=== PATIENT | female | born 1980 | race Two or more races ===

== ENCOUNTER 2017-07-25 01:45 | Inpatient (IN) | payer BC, MEDICAID ==
[~2017-07-25] VITALS: Ht 157.5 cm; Wt 91.2 kg
[2017-07-25] MEDS ORDERED: LACTATED RINGER'S 1,000 ML IV SCH ×2 (02:00→02:41)
[2017-07-25 02:36] LABS: Urine Bacteria NONE SEEN /hpf (None Seen); Urine Blood 1+ /uL (Negative); Urine Mucus FEW (None Seen); Urine Specific Gravity 1.026 (1.001-1.035); Urine WBC 1 /hpf (0 - 5)
[2017-07-25] MEDS ORDERED: LACT. RINGERS/OXYTOCIN 20UNITS 1,000 ML IV SCH (02:41)
[2017-07-25] MEDS ORDERED: BUTORPHANOL TARTRATE 2 MG/1 ML VIAL IM ONE ×2 (02:45)
[2017-07-25] MEDS ORDERED: LIDOCAINE 2% (LOCAL ANESTH.) PF 5ml SDV ID ONE (02:45)
[2017-07-25] MEDS ORDERED: BUTORPHANOL TARTRATE 2 MG/1 ML VIAL ONE (02:47)
[2017-07-25 03:00] LABS: Alcohol, Urine < 3.0 mg/dL (0-5); Amphetamine Screen, Urine NEGATIVE (NEGATIVE); Barbiturate Scree,Urine NEGATIVE (NEGATIVE); Benzodiazephine Screen, Urine NEGATIVE (NEGATIVE); Cannabinoid Screen, Urine NEGATIVE (NEGATIVE); Cocaine Screen, Urine NEGATIVE (NEGATIVE); Opiate Scree,Urine NEGATIVE (NEGATIVE); Phencyclidine Screen, Urine NEGATIVE (NEGATIVE)
[2017-07-25 03:17] LABS: Basophils # (auto) 0.1 uL; Basophils % (auto) 0.4 % (0.0-2.0); Eosinophils # (auto) 0 uL; Eosinophils % (auto) 0.2 % (0.0-7.0); Hematocrit 34.5 % (36.0-46.0); Hemoglobin 11.4 g/dL (12.2-16.2); Lymphocytes # (auto) 2.1 uL; Lymphocytes % (auto) 16.1 % (10.0-50.0); Mean Corpuscular Hemoglobin 28.6 pg (28.0-32.0); Mean Corpuscular Hgb Conc. 33.1 g/dL (32.0-36.0); Mean Corpuscular Volume 86.4 fL (80.0-100.0); Monocytes # (auto) 1.1 uL; Monocytes % (auto) 8.7 % (0.0-12.0); Neutrophils # (auto) 9.6 uL; Neutrophils % (auto) 74.6 % (37.0-80.0); Platelet Count (auto) 262 10^3/uL (140-450); Red Cell Distribution Width 14.8 % (11.8-14.3); White Blood Cell 12.8 10^3/uL (4.4-10.8)
[2017-07-25 03:40] LABS: INR 0.83 (0.9-1.15); Partial Thromboplastin Time 25.8 sec (23.78-33.04)
[2017-07-25 03:59] LABS: Albumin 2.7 g/dL (3.4-5.0); Calcium 8.1 mg/dL (8.5-10.1); Potassium 3.6 mmol/L (3.5-5.1)
[2017-07-25 04:02] LABS: BUN/Creatinine Ratio 13.7; Bilirubin, Total 0.3 mg/dL (0.2-1.0); Total Protein 6.8 g/dL (6.4-8.2)
[2017-07-25] MEDS ORDERED: LIDOCAINE HCL 2 %PF INJ 10ML AMP IJ ONE (04:17)
[2017-07-25] MEDS ORDERED: ePHEDrine SULFATE 50 MG/ML AMP ONE (04:17)
[2017-07-25] MEDS ORDERED: fentaNYL CITRATE 100 MCG/2 ML VL ONE (04:17)
[2017-07-25] MEDS ORDERED: fentaNYL W ROPIVACAINE 0 ML EPI ONE (04:17)
[2017-07-25] MEDS ORDERED: DERMOPLAST 60ML BOTTLE TOP PRN (05:30)
[2017-07-25] MEDS ORDERED: WITCH HAZEL-GLYCERIN PAD TOP PRN (05:30)
[2017-07-25] MEDS ORDERED: PHISODERM TOP SOLN 240ML BTL TOP PRN (05:30)
[2017-07-25] MEDS ORDERED: METHYLERGONOVINE MALEATE 0.2 MG/ML AMP IM PRN (05:30)
[2017-07-25] MEDS ORDERED: LACT. RINGERS/OXYTOCIN 20UNITS 500 ML IV ONE (06:50)
[2017-07-25] MEDS ORDERED: IBUPROFEN 600 MG TAB PO ONE (06:51)
[2017-07-25] MEDS ORDERED: ACETAMINOPHEN 325 MG TAB PO PRN (07:00)
[2017-07-25] MEDS ORDERED: IBUPROFEN 600 MG TAB PO PRN (07:00)
[2017-07-25] MEDS ORDERED: BUTORPHANOL TARTRATE 2 MG/1 ML VIAL IV ONE (07:15)
[2017-07-25 11:00] VITALS: BP 114/57
[2017-07-25 15:00] VITALS: BP 106/64
[2017-07-25 19:00] VITALS: BP 116/75
[2017-07-25 23:24] VITALS: BP 108/60
[2017-07-26 02:32] VITALS: BP 108/52
[2017-07-26 05:07] LABS: RPR Non Reactive (Non Reactive)
[2017-07-26] MEDS ORDERED: TETANUS-DIPTH-ACEL PERTUSSIS 0.5ML SYRG IM ONE (06:15)
[2017-07-26] MEDS ORDERED: MEASLES, MUMPS & RUBELLA VAC(MMRII) 0.5ML SC ONE (06:15)
[2017-07-26 07:00] VITALS: BP 115/57
[2017-07-26 09:08] LABS: Rubella Antibodies, IgG <0.90 index (Immune >0.99)
== END 2017-07-26 10:50 | disposition home or self-care (01) | DRG 775 ==
LOC: OBSVTOIN 01:45 → LDRP 01:45
PROVIDERS: ADMIT Obstetrics & Gynecology; ATTEND Obstetrics & Gynecology
PROC: 10E0XZZ Delivery of Products of Conception, External Approach (ICD-10-PCS; principal; 2017-07-25)
DX: O99.52 Diseases of the respiratory system complicating childbirth (principal); O99.344 Other mental disorders complicating childbirth; F31.9 Bipolar disorder, unspecified; J45.909 Unspecified asthma, uncomplicated; Z98.51 Tubal ligation status; Z37.0 Single live birth; Z3A.38 38 weeks gestation of pregnancy; Z23 Encounter for immunization
CPT/HCPCS: 36415; 59025; 59409; 80053; 80307; 81001; 85025; 85610; 85730; 86592; 86703; 86762; 86850; 86900; 86901; 87340; 90471; 90472; 90715; 96361; 96365; 96366; 96374; G0378; J2590; J3010

== ENCOUNTER 2017-12-18 07:49 | Emergency (ER) | payer BC, MEDICAID ==
[~2017-12-18] VITALS: Ht 172.7 cm; Wt 77.1 kg
[2017-12-18 08:48] LABS: Urine WBC None Seen /hpf (0 - 5)
[2017-12-18 08:55] LABS: Basophils # (auto) 0 uL; Basophils % (auto) 0.4 % (0.0-2.0); Eosinophils # (auto) 0 uL; Hematocrit 39.4 % (36.0-46.0); Hemoglobin 12.7 g/dL (12.2-16.2); Lymphocytes # (auto) 2.1 uL; Lymphocytes % (auto) 15.7 % (10.0-50.0); Mean Corpuscular Hemoglobin 28.3 pg (28.0-32.0); Mean Corpuscular Hgb Conc. 32.2 g/dL (32.0-36.0); Mean Corpuscular Volume 87.7 fL (80.0-100.0); Monocytes # (auto) 1.4 uL; Monocytes % (auto) 10.3 % (0.0-12.0); Neutrophils % (auto) 73.6 % (37.0-80.0); Nucleated Red Blood Cells % 0.1 %; Platelet Count (auto) 325 10^3/uL (140-450); Red Blood Cells 4.49 10^6/uL (4.0-5.20); Red Cell Distribution Width 13.8 % (11.8-14.3); White Blood Cell 13.5 10^3/uL (4.4-10.8)
[2017-12-18 09:00] LABS: Urine Bacteria FEW /hpf (None Seen); Urine Blood Negative /uL (Negative); Urine Specific Gravity 1.026 (1.001-1.035)
[2017-12-18 09:12] LABS: Albumin 3.8 g/dL (3.4-5.0); BUN/Creatinine Ratio 12.8; Calcium 8.7 mg/dL (8.5-10.1); Potassium 3.6 mmol/L (3.5-5.1)
[2017-12-18 09:15] LABS: Bilirubin, Total 0.8 mg/dL (0.2-1.0); Total Protein 8.1 g/dL (6.4-8.2)
[2017-12-18] MEDS ORDERED: SODIUM CHLORIDE 0.9% 500 ML IVB ONE (09:15)
[2017-12-18] MEDS ORDERED: MORPHINE SULFATE 4 MG/ML SYR/VIAL IV ONE (09:15)
[2017-12-18] MEDS ORDERED: SODIUM CHLORIDE 0.9% 1,000 ML IV ONE (09:15)
[2017-12-18] MEDS ORDERED: PROMETHAZINE HCL 25 MG/ML 1ML IV PRN (09:15)
[2017-12-18 09:37] LABS: Magnesium 2.1 mg/dL (1.6-2.6)
[2017-12-18 09:48] LABS: Beta HCG, Quantitative < 1 mlU/mL (1-3); Thyroid Stimulating Hormone 0.73 uIU/mL (0.358-3.74)
[2017-12-18 15:23] VITALS: BP 136/51
== END 2017-12-18 15:25 | disposition home or self-care (01) ==
LOC: ER 07:49 → EDUNIT# 07:49 → ER 15:25
DX: N83.202 Unspecified ovarian cyst, left side (principal); Z98.51 Tubal ligation status; Z87.891 Personal history of nicotine dependence
CPT/HCPCS: 36415; 71046; 74176; 76856; 80053; 81001; 83690; 83735; 84443; 84702; 85025; 93005; 96374; 96375; 99285; J2270; J2550; J7030

== ENCOUNTER 2018-10-22 13:16 | Emergency (ER) | payer BC, MEDICAID ==
[~2018-10-22] VITALS: Ht 170.2 cm; Wt 81.6 kg
[2018-10-22 13:58] LABS: Basophils # (auto) 0 uL; Basophils % (auto) 0.6 % (0.0-2.0); Eosinophils # (auto) 0.1 uL; Eosinophils % (auto) 0.7 % (0.0-7.0); Hematocrit 37.7 % (36.0-46.0); Hemoglobin 12.5 g/dL (12.2-16.2); Lymphocytes # (auto) 1.5 uL; Lymphocytes % (auto) 20.7 % (10.0-50.0); Mean Corpuscular Hemoglobin 28.9 pg (28.0-32.0); Mean Corpuscular Hgb Conc. 33.1 g/dL (32.0-36.0); Mean Corpuscular Volume 87.2 fL (80.0-100.0); Monocytes # (auto) 0.5 uL; Monocytes % (auto) 6.8 % (0.0-12.0); Neutrophils # (auto) 5.2 uL; Neutrophils % (auto) 71.2 % (37.0-80.0); Platelet Count (auto) 296 10^3/uL (140-450); Red Blood Cells 4.33 10^6/uL (4.0-5.20); Red Cell Distribution Width 14.6 % (11.8-14.3); White Blood Cell 7.3 10^3/uL (4.4-10.8)
[2018-10-22 14:23] LABS: Alanine Aminotransferase 17 U/L (13-56); Albumin 3.7 g/dL (3.4-5.0); Anion Gap 10 (5-15); Aspartate Aminotransferase 12 U/L (15-37); BUN/Creatinine Ratio 16.7; Blood Urea Nitrogen 16 mg/dL (7-18); Calcium 8.3 mg/dL (8.5-10.1); Carbon Dioxide 20 mmol/L (21-32); Chloride 110 mmol/L (98-107); GFR African American 84 mL/min; GFR Non-African American 69 mL/min; Glucose 88 mg/dL (74-106); Potassium 3.3 mmol/L (3.5-5.1); Sodium 140 mmol/L (136-145)
[2018-10-22 14:28] LABS: Alkaline Phosphatase 67 U/L (45-117); Bilirubin, Total 0.3 mg/dL (0.2-1.0); Total Protein 7.3 g/dL (6.4-8.2)
[2018-10-22 16:45] VITALS: BP 101/54
[2018-10-22] MEDS ORDERED: SODIUM CHLORIDE 0.9% 1,000 ML IVB ONE (17:29)
[2018-10-22] MEDS ORDERED: POTASSIUM CHL 20 Meq TABLET PO ONE (18:15)
[2018-10-22 18:46] LABS: INR 0.94 (0.9-1.15); Partial Thromboplastin Time 30.6 sec (23.64-32.05)
[2018-10-22 19:07] LABS: Urine Bacteria NONE SEEN /hpf (None Seen); Urine Blood TRACE /uL (Negative); Urine Mucus FEW (None Seen); Urine Specific Gravity 1.023 (1.001-1.035); Urine WBC 3 /hpf (0 - 5)
== END 2018-10-22 19:09 | disposition left against medical advice (07) ==
LOC: EDBD 13:16 → ER 13:16
DX: E87.6 Hypokalemia (principal); F41.9 Anxiety disorder, unspecified; Z53.29 Procedure and treatment not carried out because of patient's decision for other reasons; Z98.51 Tubal ligation status
CPT/HCPCS: 36415; 80053; 81001; 81025; 83735; 84484; 85025; 85610; 85730; 93005; 94761; 96360

== ENCOUNTER 2019-08-09 06:06 | Emergency (ER) | payer BC, MEDICAID ==
[~2019-08-09] VITALS: Ht 172.7 cm; Wt 81.6 kg
[2019-08-09 06:46] VITALS: BP 107/67
== END 2019-08-09 09:54 | disposition left against medical advice (07) ==
LOC: ER 06:06 → EDBD 06:06 → ER 09:54
DX: R50.9 Fever, unspecified (principal); R07.9 Chest pain, unspecified; Z53.21 Procedure and treatment not carried out due to patient leaving prior to being seen by health care provider

== ENCOUNTER 2019-10-02 12:16 | Inpatient (IN) | payer BC, MEDICAID ==
[~2019-10-02] VITALS: Ht 160 cm; Wt 85.2 kg
[2019-10-02] MEDS ORDERED: SODIUM CHLORIDE 0.9% 1,000 ML IV ONE ×2 (12:41)
[2019-10-02] MEDS ORDERED: ZINC SULFATE 220mg CAP or TAB PO ONE (12:45)
[2019-10-02] MEDS ORDERED: ASCORBIC ACID 500 MG TAB PO ONE (12:45)
[2019-10-02 13:07] LABS: Basophils # (auto) 0 10 ^3/uL (0-0.2); Basophils % (auto) 0.3 % (0.0-2.0); Eosinophils # (auto) 0 10 ^3/uL (0-0.8); Eosinophils % (auto) 0.3 % (0.0-7.0); Hematocrit 39.7 % (36.0-46.0); Hemoglobin 12.8 g/dL (12.2-16.2); Lymphocytes # (auto) 1.6 10 ^3/uL (0.4-5.4); Lymphocytes % (auto) 15.7 % (10.0-50.0); Mean Corpuscular Hemoglobin 27.9 pg (28.0-32.0); Mean Corpuscular Hgb Conc. 32.3 g/dL (32.0-36.0); Mean Corpuscular Volume 86.5 fL (80.0-100.0); Monocytes # (auto) 0.7 10 ^3/uL (0-1.3); Monocytes % (auto) 7.4 % (0.0-12.0); Neutrophils # (auto) 7.7 10 ^3/uL (1.6-8.6); Neutrophils % (auto) 76.3 % (37.0-80.0); Platelet Count (auto) 362 10^3/uL (140-450); Red Blood Cells 4.59 10^6/uL (4.0-5.20); Red Cell Distribution Width 15.4 % (11.8-14.3)
[2019-10-02 13:21] LABS: Albumin 3.3 g/dL (3.4-5.0); Calcium 8.6 mg/dL (8.5-10.1); Potassium 3.5 mmol/L (3.5-5.1)
[2019-10-02 13:29] LABS: BUN/Creatinine Ratio 20.3; Bilirubin, Total 0.6 mg/dL (0.2-1.0); CRP High Sensitivity 3.17 mg/dL (< 0.3); Total Protein 7.4 g/dL (6.4-8.2)
[2019-10-02] MEDS ORDERED: IOHEXOL 350 MG/ML 100ML IJ ONE (17:16)
[2019-10-02] MEDS ORDERED: ONDANSETRON HCL 4 MG/2 ML VIAL IV PRN (20:30)
[2019-10-02] MEDS ORDERED: HYDROcodone-ACET 5/325MG TAB PO PRN (20:30)
[2019-10-02] MEDS ORDERED: LORazepam 0.5 MG TAB PO PRN (20:30)
[2019-10-02] MEDS ORDERED: DOCUSATE SOD 100 MG CAP PO PRN (20:30)
[2019-10-02] MEDS ORDERED: ACETAMINOPHEN 325 MG TAB PO PRN (20:30)
[2019-10-02] MEDS ORDERED: ACETAMINOPHEN 500 MG TAB PO PRN (20:30)
[2019-10-02] MEDS: SODIUM CHLORIDE 0.9% 1,000 ML IV SCH (21:36)
[2019-10-02] MEDS ORDERED: ALBUTEROL SULF HFA 90MCG INH 200DOSE IN SCH (22:00)
--- NOTE | 2019-10-02 22:02 | NUR ---
MS admit from ER Patient admitted to tele/MS after SBAR received. Patient oriented to primary RN, unit, room, bed, and unit policies regarding patient care and visiting hours. Respirations even and unlabored, O2 saturation 100% on room air. Bed in lowest locked position with two side rails raised and call moore within reach. Patient weighed by bed scale and encouraged to call if they need something. Instructed on POC, All questions and concerns addressed, patient verbalized understanding. Will continue to monitor Q1 hr and PRN.
--- NOTE | 2019-10-02 22:10 | NUR ---
PATIENT WANTS TO AMA Patient states they want to leave the hospital Against Medical Advice (AMA), stating "I can't handle it in here, I'm probably just going to check myself out." Patient is visibly upset and crying. Education provided and patient encouraged to stay for further treatment/stabilization. Patient verbalized understanding and agreed to stay but stated, "I will most likely be checking myself out tonight." Will continue to monitor and provide education.
[2019-10-02 22:39] VITALS: BP 112/65
[2019-10-02 22:57] VITALS: BP 112/65
[2019-10-02] MEDS: DOXYCYCLINE 100 MG TAB/CAP PO SCH (23:12)
--- NOTE | 2019-10-03 01:31 | NUR ---
ROUNDS Patient resting in bed with eyes closed. No s/s of SOB or distress, will continue to monitor.
[2019-10-03 04:59] VITALS: BP 102/65
[2019-10-03 07:44] LABS: Basophils # (auto) 0 10 ^3/uL (0-0.2); Basophils % (auto) 0.5 % (0.0-2.0); Eosinophils # (auto) 0 10 ^3/uL (0-0.8); Eosinophils % (auto) 0.5 % (0.0-7.0); Hematocrit 38.2 % (36.0-46.0); Hemoglobin 12.4 g/dL (12.2-16.2); Lymphocytes # (auto) 1.6 10 ^3/uL (0.4-5.4); Lymphocytes % (auto) 17.7 % (10.0-50.0); Mean Corpuscular Hemoglobin 28.2 pg (28.0-32.0); Mean Corpuscular Hgb Conc. 32.4 g/dL (32.0-36.0); Monocytes # (auto) 0.7 10 ^3/uL (0-1.3); Monocytes % (auto) 8.2 % (0.0-12.0); Neutrophils # (auto) 6.5 10 ^3/uL (1.6-8.6); Neutrophils % (auto) 73.1 % (37.0-80.0); Platelet Count (auto) 329 10^3/uL (140-450); Red Blood Cells 4.38 10^6/uL (4.0-5.20); Red Cell Distribution Width 15.7 % (11.8-14.3); White Blood Cell 8.9 10^3/uL (4.4-10.8)
--- NOTE | 2019-10-03 08:00 | NUR ---
Patient refused PM meds, refuses to wear IV fluids at this time
[2019-10-03 08:06] LABS: Albumin 2.9 g/dL (3.4-5.0); Calcium 8.2 mg/dL (8.5-10.1); Potassium 3.7 mmol/L (3.5-5.1)
[2019-10-03 08:11] LABS: BUN/Creatinine Ratio 17.3; Bilirubin, Total 0.6 mg/dL (0.2-1.0); Total Protein 6.7 g/dL (6.4-8.2)
[2019-10-03] MEDS ORDERED: ZINC SULFATE 220mg CAP or TAB PO SCH (10:00)
[2019-10-03] MEDS ORDERED: DexAMETHasone SOD PHOS 10MG/1ML VIAL INJ IV SCH (10:00)
[2019-10-03] MEDS ORDERED: ASCORBIC ACID 1,000 MG TAB PO SCH (10:00)
[2019-10-03] MEDS ORDERED: ENOXAPARIN SOD 40 MG/0.4 ML SYRINGE SC SCH (10:00)
[2019-10-03] MEDS: DOXYCYCLINE 100 MG TAB/CAP PO SCH (10:58)
[2019-10-03] MEDS ORDERED: LORATADINE 10 MG TAB ONE (12:51)
[2019-10-03 13:00] VITALS: BP 107/72
--- NOTE | 2019-10-03 13:00 | NUR ---
Per Dr Stefany Spear to give a claritin dose now.
[2019-10-03] MEDS: SODIUM CHLORIDE 0.9% 1,000 ML IV SCH (13:13)
--- NOTE | 2019-10-03 15:20 | NUR ---
Per patient she does not believe she has covid, because she has had 2 prior negative tests, she stated she would not stay in the hospital with other patients who had covid because she doesn't want to get covid again and bring home covid to her and children.she stated she was going to immediately leave, patient puled out her own iv and catheter was intact, I applied tape and gauze for patient.
--- NOTE | 2019-10-03 15:25 | NUR ---
Discussed with patient the covid test that was performed on her was indeed a test used to check for current covid infection, she was insistent that a nurse told her it was the test that just shows if shes EVER been exposed, I explained that It was not the antibody test it was the antigen test, that it was to show if she had a current infection, but she insisted that this was not the case, and that she did not have covid and she wanted to leave.
--- NOTE | 2019-10-03 15:30 | NUR ---
Patient signed AMA, patient states shes sorry but she needs to leave. Educated patient that she cannot have any discharge paperwork or medications. Explained that she should immediately follow up with a doctor and request her records if she needs them.
--- NOTE | 2019-10-03 15:40 | NUR ---
Dr Mccall called and made aware of AMA.
--- NOTE | 2019-10-03 16:00 | NUR ---
Patient left out of the Covid unit and is waiting by the covid ante RM exit with security waiting for EVS to escort.
--- NOTE | 2019-10-03 16:30 | NUR ---
Patient left floor with security and EVS escort.
[2019-10-04] MEDS ORDERED: LORATADINE 10 MG TAB PO SCH (10:00)
== END 2019-10-03 16:00 | disposition left against medical advice (07) | DRG 179 ==
LOC: ER 12:16 → EDBD 12:16 → OVERFLOW 12:17 → EAST 22:02
PROVIDERS: ADMIT Hospitalist; ATTEND Hospitalist
DX: U07.1 COVID-19 (principal); F41.9 Anxiety disorder, unspecified; F32.9 Major depressive disorder, single episode, unspecified; E66.9 Obesity, unspecified; Z53.29 Procedure and treatment not carried out because of patient's decision for other reasons; J43.9 Emphysema, unspecified; R79.1 Abnormal coagulation profile; Z98.51 Tubal ligation status; Z68.33 Body mass index [BMI] 33.0-33.9, adult; Z82.49 Family history of ischemic heart disease and other diseases of the circulatory system
CPT/HCPCS: 36415; 70450; 71045; 71275; 80053; 82728; 83615; 83735; 85025; 85379; 86141; 87081; 87426; 96360; 96361; G0378; J1100

== ENCOUNTER 2020-09-13 10:29 | Emergency (ER) | payer BC, MEDICAID ==
[~2020-09-13] VITALS: Ht 165.1 cm; Wt 86.2 kg
[2020-09-13 10:44] VITALS: BP 112/64
[2020-09-13] MEDS ORDERED: SODIUM CHLORIDE 0.9% 1,000 ML IV ONE (11:00)
== END 2020-09-13 15:05 | disposition left against medical advice (07) ==
LOC: EDBD 10:29 → ER 10:29
DX: R53.1 Weakness (principal); R00.0 Tachycardia, unspecified; R10.84 Generalized abdominal pain; F41.9 Anxiety disorder, unspecified; F32.9 Major depressive disorder, single episode, unspecified; Z88.6 Allergy status to analgesic agent; Z88.8 Allergy status to other drugs, medicaments and biological substances; Z41.1 Encounter for cosmetic surgery
CPT/HCPCS: 93005